=== PATIENT | male | born 1985 | race Caucasian/White ===

== ENCOUNTER 2017-12-06 18:02 | Emergency (ER) | payer OTHER ==
[~2017-12-06] VITALS: Ht 185.4 cm; Wt 95.0 kg
[2017-12-06] MEDS ORDERED: KEN0.1O TP (19:02)
[2017-12-06 19:25] VITALS: BP 137/99
== END 2017-12-06 19:27 | disposition home or self-care (01) ==
LOC: ER 18:06
DX: L25.9 Unspecified contact dermatitis, unspecified cause (principal); Z88.0 Allergy status to penicillin
CPT/HCPCS: 99283

== ENCOUNTER 2024-08-19 14:03 | Emergency (ER) | payer OTHER ==
[~2024-08-19] VITALS: Ht 188 cm; Wt 71.0 kg
[2024-08-19] MEDS: ketorolac trometh 15mg/ml vial 15 MG/ML ML IM ONE (14:58)
[2024-08-19] MEDS ORDERED: METH-798 PO (15:46)
[2024-08-19] MEDS ORDERED: IBUP-862 PO (15:46)
[2024-08-19 15:50] VITALS: BP 134/86; PULSE 70; RESP 18; TEMP 99.4; O2SAT 96
== END 2024-08-19 15:50 | disposition home or self-care (01) ==
LOC: ER 14:04
DX: S16.1XXA Strain of muscle, fascia and tendon at neck level, initial encounter (principal); Z88.0 Allergy status to penicillin; V89.2XXA Person injured in unspecified motor-vehicle accident, traffic, initial encounter; Y93.89 Activity, other specified; Y92.410 Unspecified street and highway as the place of occurrence of the external cause; Y99.8 Other external cause status
CPT/HCPCS: 72040; 96372; 99283; J1885; L0172